=== PATIENT | female | born 1970 | race Caucasian/White ===

== ENCOUNTER → 2016-06-09 | Outpatient (CLI) | payer OTHER ==
[~2016-06-09] MED LIST: CONRAY-43 43% 50ML VIAL (Q9960) As Ordered ONE
--- NOTE | 2016-06-09 11:13 | REP ---
MR arthrography left shoulder: with pre and post intra-articular gadolinium enhanced saline injected imaging: History: Left shoulder pain. History of left shoulder surgery for bone fragment in 2010 after an injury. Comparison is made with a portable radiograph from [facility] dated June 18, 2009. Comparison MR imaging of the left shoulder performed with and without IV contrast is from April 16, 2009. Technique: The injection procedure is performed and dictated separately. Pre and post intra-articular gadolinium enhanced saline injected imaging is acquired. Imaging planes include axial, oblique coronal, oblique sagittal and ABER projection images. T1 T2-weighted scans are included with and without fat saturation. MRI findings: Pre injection MR imaging demonstrates normal alignment of the glenohumeral and acromioclavicular joints. There is a preinjection glenohumeral joint effusion. There is a intra labral and para labral cyst at the inferior anterior aspect of the labral cartilage. This cyst measures 9 mm in greatest diameter. There is some adjacent joint fluid. There is an associated anteroinferior labral cartilage tear. A small subacromial subdeltoid bursal effusion is seen on preinjection imaging as well. There is subcortical cyst formation in the humeral head. Post injection imaging shows good filling and enhancement of the left glenohumeral articulation. No loose body is seen. There is tendonitis tendinosis change in the supraspinatus tendon. There is no evidence of full-thickness cuff tear. There is some enhancement of the synovial surface portion of the distal supraspinatus tendon consistent with a partial thickness synovial surface distal supraspinatus tear. No superior labral tear is seen. The biceps tendons is intact. The para labral cyst does not enhance at the time of post injection imaging. Impression: 1. Subacromial subdeltoid bursal effusion. 2. Preinjection glenohumeral joint effusion. 3. Partial synovial surface distal supraspinatus cuff tear. 4. Para labral cyst associated with an anteroinferior labral cartilage tear. 5. No loose body seen. Signed by Simone Disla MD 06/09/2016 02:00 P
--- NOTE | 2016-06-10 14:51 | REP ---
Procedure: Left shoulder arthrogram The procedure was performed under the direct supervision of Dr. Disla. History: Left shoulder pain The benefits and risks including but not limited to pain, infection, bleeding and anaphylaxis were explained to the patient and informed consent was obtained. Technique: The left glenohumeral joint space was localized using fluoroscopic guidance. The skin was prepped and draped in a sterile fashion. 1% lidocaine was used as a local anesthetic. Using fluoroscopic guidance a 22 gauge spinal needle was inserted and advanced into the joint. 0.5 ml of Conray 43 was injected to verify placement. 11 ml of a solution containing 20 ml of sterile saline and 0.15 ml of ProHance was injected into the joint. The needle was removed and the patient was taken to MRI for postprocedural imaging. The the patient tolerated the procedure well and there were no immediate complications. 6 seconds of fluoro time was utilized for this procedure. Reviewed by BESSY Boone 06/09/2016 05:19 PSigned by Simone Disla MD 06/10/2016 02:44 P
== END ==
LOC: M RADPRO 06:59
PROVIDERS: ATTEND Nurse Practitioner Family
DX: S46.012A Strain of muscle(s) and tendon(s) of the rotator cuff of left shoulder, initial encounter (principal); M25.412 Effusion, left shoulder; S43.432A Superior glenoid labrum lesion of left shoulder, initial encounter; X58.XXXA Exposure to other specified factors, initial encounter; Y93.9 Activity, unspecified; Y92.9 Unspecified place or not applicable; Y99.8 Other external cause status; Z88.0 Allergy status to penicillin; Z88.5 Allergy status to narcotic agent
CPT/HCPCS: 23350; 73223; 77002; A9576; Q9960

== ENCOUNTER 2016-10-14 08:13 | Emergency (ER) | payer OTHER ==
[2016-10-14] MEDS ORDERED: NAPR250T45 PO (08:52)
[2016-10-14] MEDS ORDERED: BACT800T5 PO (09:40)
[2016-10-14 09:52] VITALS: BP 131/72
== END 2016-10-14 09:54 | disposition home or self-care (01) ==
LOC: M ED 08:13
DX: N61.0 Mastitis without abscess (principal); Z88.0 Allergy status to penicillin; Z88.5 Allergy status to narcotic agent

== ENCOUNTER → 2016-10-23 | Outpatient (CLI) | payer OTHER ==
[~2016-10-23] MED LIST changes: +BACT800T5 PO; -CONRAY-43 43% 50ML VIAL (Q9960) As Ordered ONE; +NAPR250T45 PO
--- NOTE | 2016-10-23 15:01 | REP ---
ULTRASOUND, LEFT BREAST: Real-time sonographic evaluation of the left breast is performed. There is a palpable abnormality. The abnormality is actually not within the left breast itself but is in the presternal soft tissues. At that location is an oval hypoechoic nodular area which measures approximately 2.7 x 1.0 x 2.7 cm. This has increased in size since the prior study of 04/02/2016 when it measures 8 x 7 x 6 mm. At that time, the abnormality was smooth and well defined. Current margins are irregular. IMPRESSION: ACR 3 probably benign. Irregular oval hypoechoic lesion at the site of the reported palpable abnormalities in the left presternal soft tissues. This hypoechoic area measures 2.7 x 1.0 x 2.7 cm and has significantly increased in size since the prior ultrasound of 04/02/2016. This may represent an enlargement of a subcutaneous fluid collection or complex cyst. Recommend either drainage/biopsy or followup ultrasound after appropriate antibiotic treatment. Signed by Coleman Mosqueda MD 10/23/2016 05:27 P
== END ==
LOC: M RAD 13:40
PROVIDERS: ATTEND Family Medicine
DX: N63 Unspecified lump in breast (principal)

== ENCOUNTER → 2017-09-29 | Outpatient (REF) ==
[2017-09-29 13:28] LABS: CRYSTALS, BODY FLUID NONE SEEN (NONE SEEN); SOURCE, BODY FLUID CRYSTALS LFT KNEE
[2017-09-29 13:43] LABS: RBC BODY FLUID 2 10^3/uL (<2); WBC BODY FLUID 216 /uL (0-10)
[2017-09-29 13:44] LABS: APPEARANCE, BODY FLUID HAZY (CLEAR); SOURCE, BODY FLUID LFT KNEE
== END ==
LOC: M LAB REF 12:40
DX: Z00.00 Encounter for general adult medical examination without abnormal findings (principal)

== ENCOUNTER → 2018-05-10 | Outpatient (CLI) | payer OTHER ==
[~2018-05-10] MED LIST changes: -NAPR250T45 PO; +NAPR250T82 PO
[2018-05-11 11:13] LABS: HEPATITIS A ANTIBODY IGM NEGATIVE (NEGATIVE); HEPATITIS B CORE ANTIBODY IGM NEGATIVE (NEGATIVE); HEPATITIS B SURFACE ANTIBODY POSITIVE (POSITIVE); HEPATITIS B SURFACE ANTIGEN NEGATIVE (NEGATIVE); HEPATITIS C VIRUS ABY INDEX 0.1 INDEX (<0.8)
== END ==
LOC: M WUC 11:45
PROVIDERS: ATTEND Physician Assistant
DX: Z11.3 Encounter for screening for infections with a predominantly sexual mode of transmission (principal)

== ENCOUNTER → 2019-02-14 | Outpatient (CLI) | payer OTHER ==
--- NOTE | 2019-02-14 12:49 | REPMRS ---
Patient History The patient states she has not had a clinical breast exam in over a year. Family history of melanoma at age 50 in father. Digital Mammo Screening Bilat: February 14, 2019 - Exam #: [id number] Bilateral CC and MLO view(s) were taken. Technologist: Denise Dodd, Technologist Prior study comparison: April 02, 2016, digital mammo diagnostic bilateral performed at [facility]. FINDINGS: There are scattered fibroglandular densities. There has been no change in the appearance of the mammogram from the prior studies. There is a mild amount of scattered fibroglandular density which is fairly symmetric. There is no interval development of dominant mass, architectural distortion, or grouped microcalcification suggestive of malignancy. 3-D tomosynthesis shows no additional findings. Assessment: BI-RADS/ACR category 1 mammogram. Negative Mammogram. Recommendation Routine screening mammogram of both breasts in 1 year (for women over age 40). This patient's Lifetime Breast Cancer Risk is estimated at 10.4 %. This mammogram was interpreted with the aid of an FDA-approved computer-aided dectection system. Electronically Signed By: Hubert Disla MD 02/14/19 [id number]
== END ==
LOC: M RAD 10:59
PROVIDERS: ATTEND Student in an Organized Health Care Education/Training Program
DX: Z12.31 Encounter for screening mammogram for malignant neoplasm of breast (principal)

== ENCOUNTER 2021-04-02 09:27 | Emergency (ER) | payer OTHER ==
[~2021-04-02] VITALS: Ht 172.7 cm; Wt 112.3 kg
[2021-04-02] MEDS ORDERED: PROAAER10 INH (09:39)
[2021-04-02] MEDS ORDERED: NAPR220C14 PO (09:39)
[2021-04-02] MEDS ORDERED: ASCO1TAB3 PO (09:39)
--- NOTE | 2021-04-02 10:23 | REP ---
INDICATION: sob cough COMPARISON: 06/02/2015 TECHNIQUE: Portable AP view of the chest FINDINGS: The mediastinum and cardiac silhouette are stable and within normal limits for portable technique. The lung gomez are clear without acute consolidation, effusion, or pneumothorax. Skeletal structures are intact. IMPRESSION: No acute cardiopulmonary process appreciated. <Electronically signed by Merritt Joseph > 04/02/21 [id number]
[2021-04-02 10:33] LABS: RSV AMPLIFICATION NEGATIVE (NEGATIVE)
[2021-04-02] MEDS ORDERED: ALBUTEROL 90 MCG/ACT 8GM HFA INHALER INH ONE (11:30)
[2021-04-02 12:12] LABS: BASO % 0.3 % (0.0-1.0); EOS # 0.1 10^3/uL (0.0-0.5); EOS % 2.2 % (0.0-3.0); HEMATOCRIT 38.2 % (36.0-47.0); HEMOGLOBIN 12.7 g/dl (12.0-15.5); LYMPH # 1.1 10^3/uL (1.5-5.0); LYMPH % 19.1 % (24.0-44.0); MEAN CORPUSCULAR HEMOGLOBIN 29.2 pg (27.0-33.0); MEAN CORPUSCULAR HGB CONC 33.2 g/dl (32.0-36.5); MEAN CORPUSCULAR VOLUME 87.8 fl (80.0-96.0); MONO # 0.4 10^3/uL (0.0-0.8); MONO % 6.9 % (2.0-8.0); NEUTROPHILS # 4.2 10^3/uL (1.5-8.5); NEUTROPHILS % 71.3 % (36.0-66.0); PLATELET COUNT, AUTOMATED 218 10^3/uL (150-450); RED BLOOD COUNT 4.35 10^6/uL (4.00-5.40); WHITE BLOOD COUNT 5.9 10^3/uL (4.0-10.0)
[2021-04-02 12:40] LABS: CK-MB VALUE MASS 1.3 NG/ML (<3.6); MB/CK RELATIVE INDEX 1.69 (< OR =4)
[2021-04-02 12:47] LABS: ALBUMIN 3.9 GM/DL (3.2-5.2); ALT/SGPT 26 U/L (12-78); BILIRUBIN,TOTAL 0.6 MG/DL (0.2-1.0); BLOOD UREA NITROGEN 10 MG/DL (7-18); CALCIUM LEVEL 9.1 MG/DL (8.5-10.1); CARBON DIOXIDE LEVEL 27 MEQ/L (21-32); CHLORIDE LEVEL 106 MEQ/L (98-107); CREATININE FOR GFR 0.73 MG/DL (0.55-1.30); FREE T4 0.97 NG/DL (0.76-1.46); GLOMERULAR FILTRATION RATE > 60.0 (>51); GLUCOSE, FASTING 109 MG/DL (70-100); POTASSIUM SERUM 4.4 MEQ/L (3.5-5.1); SODIUM LEVEL 139 MEQ/L (136-145); TOTAL PROTEIN 7.4 GM/DL (6.4-8.2)
[2021-04-02] MEDS ORDERED: ISOVUE-370 76% 100ML VIAL As Ordered ONE (12:51)
--- NOTE | 2021-04-02 13:21 | REP ---
INDICATION: chest pain, sob since covid in Jan 2021 COMPARISON: None. TECHNIQUE: CT angiography of the chest after the intravenous administration of 75 cc Isovue 370 attention pulmonary arteries. FINDINGS: There is excellent visualization of the pulmonary arterial vasculature. No focal filling defects are present that would be considered consistent with acute pulmonary emboli. Limited evaluation of the thoracic aorta shows no gross abnormality. There is no mediastinal or hilar adenopathy. There are no pleural or pericardial effusions. The imaged upper abdomen and imaged osseous structures are within normal limits. Evaluation of the lung gomez shows no abnormal nodules, masses, or opacities. IMPRESSION: There is no evidence of acute disease. <Electronically signed by Anson Paez > 04/02/21 [id number]
[2021-04-02 13:35] VITALS: BP 133/69
--- NOTE | 2021-04-02 16:17 | ECGEPIP ---
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
== END 2021-04-02 14:24 | disposition home or self-care (01) ==
LOC: M ED 09:27
DX: R05.9 Cough, unspecified (principal); U09.9 Post COVID-19 condition, unspecified; R07.89 Other chest pain; Z88.0 Allergy status to penicillin; Z88.5 Allergy status to narcotic agent
CPT/HCPCS: 71045; 71275; 80053; 82553; 84439; 84443; 84484; 85025; 85379; 87631; 93005; 94640; 99284; Q9967

== ENCOUNTER 2023-07-20 11:59 | Observation (INO) | payer OTHER ==
[~2023-07-20] VITALS: Ht 172.7 cm; Wt 98.4 kg
[~2023-07-20 11:59] MED LIST changes: +ASCO1TAB3 PO; +DULO30CA47 PO; +MELO7.5T35 PO; +METF10004 PO; +METH-1164 PO; +NAPR220C14 PO; +PROAAER10 INH; +THERTAB52 PO; +UNRESOLVED CLARIFICATION ENTRY XX SCH; +VITA100093 PO
[2023-07-20] MEDS ORDERED: fentaNYL 250 MCG/5 ML INJECTION As Ordered ONE (12:23)
[2023-07-20] MEDS ORDERED: LIDOCAINE 2% 100MG/5ML SDV (FOR ANES.) As Ordered ONE (12:23)
[2023-07-20] MEDS ORDERED: SUGAMMADEX SODIUM 500 MG/5 ML VIAL (BRIDION) As Ordered ONE (12:23)
[2023-07-20] MEDS ORDERED: propofoL 200 MG/20 ML VIAL As Ordered ONE (12:23)
[2023-07-20] MEDS ORDERED: ROCURONIUM BROMIDE 50MG/5ML VIAL As Ordered ONE (12:23)
[2023-07-20] MEDS ORDERED: ONDANSETRON 4MG 2ML VIAL As Ordered ONE (12:23)
[2023-07-20] MEDS ORDERED: MIDAZOLAM INJ 2MG/2ML VIAL As Ordered ONE (12:24)
[2023-07-20] MEDS ORDERED: dexmedeTOMIDine (4MCG/ML)200MCG/50ML BTL (PRECEDEX) As Ordered ONE (12:38)
[2023-07-20] MEDS: SCOPOLAMINE 1MG TRANSDERMAL PATCH TOP ONE (12:53)
[2023-07-20] MEDS: CLINDAMYCIN 900 MG in IV 1 EA IV ONE (14:41)
[2023-07-20] MEDS ORDERED: ACETAMINOPHEN 1000MG 100ML IV BAG As Ordered ONE (14:44)
[2023-07-20] MEDS: HEPARIN SOD (PORCINE) 5000UNITS/ML 1ML VIAL/SYRINGE SQ ONE (14:48)
[2023-07-20] MEDS ORDERED: HYDROmorphone HCL 2MG/ML 1ML VIAL As Ordered ONE (14:53)
[2023-07-20] MEDS: GENTAMICIN SULF 80MG/2ML VIAL As Ordered ONE (15:23)
[2023-07-20] MEDS: LIDOCAINE 1% MDV 20ML VIAL As Ordered ONE (15:23)
[2023-07-20] MEDS: EPINEPHrine INJ 1 MG/ML 1ML AMP As Ordered ONE (15:30)
[2023-07-20] MEDS ORDERED: fentaNYL 100 MCG/2 ML INJECTION IV PRN (18:25)
[2023-07-20] MEDS ORDERED: METOCLOPRAMIDE INJ 10MG/2ML VIAL IV PRN (18:25)
[2023-07-20] MEDS ORDERED: ONDANSETRON 4MG 2ML VIAL IV PRN ×2 (18:25→19:05)
[2023-07-20] MEDS ORDERED: NORCO, ANEXSIA 5/325MG TABLET (HYDROcodone/ACETAMINOPHEN) PO PRN (18:25)
[2023-07-20] MEDS: HYDROMORPHONE HCL 0.5 MG/ 0.5 ML SYRINGE IV PRN (18:45)
[2023-07-20] MEDS: oxyCODONE 5MG TAB PO PRN (18:58)
[2023-07-20] MEDS: LR 1,000 ML IV SCH ×3 (20:11→22:32)
[2023-07-20 20:15] VITALS: BP 134/86; TEMP 97.6; O2SAT 98
[2023-07-20 20:45] VITALS: BP 120/74; TEMP 97; O2SAT 93
[2023-07-20 21:45] VITALS: BP 132/82; TEMP 97; O2SAT 94
[2023-07-20] MEDS: PERCOCET 5MG/325MG TAB PO PRN (22:31)
[2023-07-21] VITALS (7 sets, daily range): BP systolic 97–108; BP diastolic 51–70; TEMP 97–97.7; O2SAT 94–98
[2023-07-21] MEDS ORDERED: fentaNYL 100 MCG/2 ML INJECTION As Ordered ONE (00:42)
[2023-07-21] MEDS ORDERED: PHENYLephrine 500MCG 5ML (100MCG/ML) SYRINGE As Ordered ONE (01:26)
[2023-07-21] MEDS ORDERED: oxyCODONE 5MG TAB PO PRN (01:35)
[2023-07-21] MEDS ORDERED: fentaNYL 100 MCG/2 ML INJECTION IV PRN (01:35)
[2023-07-21] MEDS ORDERED: ONDANSETRON 4MG 2ML VIAL IV PRN (01:35)
[2023-07-21] MEDS ORDERED: ePHEDrine SULFATE 25 MG/5 ML(5MG/ML) SYRINGE As Ordered ONE (01:47)
[2023-07-21 03:43] LABS: HEMATOCRIT 29.2 % (36.0-47.0); HEMOGLOBIN 9.7 g/dl (12.0-15.5); MEAN CORPUSCULAR HEMOGLOBIN 29.7 pg (27.0-33.0); MEAN CORPUSCULAR HGB CONC 33.2 g/dl (32.0-36.5); MEAN CORPUSCULAR VOLUME 89.3 fl (80.0-96.0); PLATELET COUNT, AUTOMATED 224 10^3/uL (150-450); RED BLOOD COUNT 3.27 10^6/uL (4.00-5.40); WHITE BLOOD COUNT 15.2 10^3/uL (4.0-10.0)
[2023-07-21] MEDS: metFORMIN (GLUCOPHAGE) 1000MG TABLET PO SCH (08:25)
[2023-07-21] MEDS: traMADol 50 MG TAB PO PRN (08:26)
[2023-07-21] MEDS: ACETAMINOPHEN TAB 650MG DOSE (2X325MG) PO PRN (08:26)
[2023-07-21 11:35] LABS: HEMATOCRIT 26.4 % (36.0-47.0); HEMOGLOBIN 8.8 g/dl (12.0-15.5); MEAN CORPUSCULAR HEMOGLOBIN 29.8 pg (27.0-33.0); MEAN CORPUSCULAR HGB CONC 33.3 g/dl (32.0-36.5); MEAN CORPUSCULAR VOLUME 89.5 fl (80.0-96.0); PLATELET COUNT, AUTOMATED 253 10^3/uL (150-450); RED BLOOD COUNT 2.95 10^6/uL (4.00-5.40)
[2023-07-21 15:18] LABS: HEMATOCRIT 24.9 % (36.0-47.0); HEMOGLOBIN 8.4 g/dl (12.0-15.5); MEAN CORPUSCULAR HEMOGLOBIN 30.1 pg (27.0-33.0); MEAN CORPUSCULAR HGB CONC 33.7 g/dl (32.0-36.5); MEAN CORPUSCULAR VOLUME 89.2 fl (80.0-96.0); PLATELET COUNT, AUTOMATED 233 10^3/uL (150-450); RED BLOOD COUNT 2.79 10^6/uL (4.00-5.40); WHITE BLOOD COUNT 12.2 10^3/uL (4.0-10.0)
[2023-07-21] MEDS ORDERED: IRON65TA2 PO (16:07)
[2023-07-21] MEDS ORDERED: TRAM50TA2 PO (16:07)
== END 2023-07-21 16:45 | disposition home or self-care (01) ==
LOC: M SDC 11:59 → M ED INP 12:00 → M MS5PR 19:45
PROVIDERS: ADMIT Plastic Surgery Surgery of the Hand; ATTEND Plastic Surgery Surgery of the Hand
DX: N62 Hypertrophy of breast (principal); L76.82 Other postprocedural complications of skin and subcutaneous tissue; Z79.899 Other long term (current) drug therapy; Z88.0 Allergy status to penicillin; Z88.5 Allergy status to narcotic agent
CPT/HCPCS: 19020; 19318; 36415; 85027; 88300; 88302; 88305; C9290; J0131; J0171; J0665; J0737; J1100; J1170; J1580; J2250; J2371; J2405; J3010

== ENCOUNTER 2023-08-09 08:40 | Inpatient (IN) | payer OTHER ==
[~2023-08-09] VITALS: Ht 172.7 cm; Wt 96.2 kg
[~2023-08-09 08:40] MED LIST changes: +IRON65TA2 PO; +TRAM50TA2 PO; -UNRESOLVED CLARIFICATION ENTRY XX SCH
[2023-08-09] MEDS ORDERED: MUPI2OI (08:50)
[2023-08-09] MEDS ORDERED: VANCOMYCIN HCL 2,000 MG in D5W 500 ML IV ONE (09:10)
[2023-08-09] MEDS: NS 1,000 ML IV ONE (09:23)
[2023-08-09] MEDS: ACETAMINOPHEN 325 MG TAB PO ONE (09:24)
[2023-08-09 09:33] LABS: BASO % 0.4 % (0.0-1.0); EOS % 0.4 % (0.0-3.0); HEMOGLOBIN 9.4 g/dl (12.0-15.5); LYMPH # 0.6 10^3/uL (1.5-5.0); LYMPH % 7.8 % (24.0-44.0); MEAN CORPUSCULAR HEMOGLOBIN 29.2 pg (27.0-33.0); MEAN CORPUSCULAR HGB CONC 32.4 g/dl (32.0-36.5); MEAN CORPUSCULAR VOLUME 90.1 fl (80.0-96.0); MONO # 0.6 10^3/uL (0.0-0.8); MONO % 8.8 % (2.0-8.0); NEUTROPHILS % 82.3 % (36.0-66.0); PLATELET COUNT, AUTOMATED 300 10^3/uL (150-450); RED BLOOD COUNT 3.22 10^6/uL (4.00-5.40); WHITE BLOOD COUNT 7.3 10^3/uL (4.0-10.0)
[2023-08-09 09:47] LABS: INR 1.26; PARTIAL THROMBOPLASTIN TIME 32.3 SECONDS (24.8-34.2); PROTHROMBIN TIME 15.4 SECONDS (12.5-14.5)
[2023-08-09] MEDS: VANCOMYCIN HCL 1,000 MG, VIAL MATE ADAPTER 1 EACH in D5W 250 ML IV ONE ×2 (09:54→11:00)
[2023-08-09 09:58] LABS: ALBUMIN 3.2 G/DL (3.2-5.2); ALKALINE PHOSPHATASE 167 U/L (46-116); ALT/SGPT 38 U/L (7.0-40); AMYLASE 32 U/L (30-118); AST/SGOT 28 U/L (<34); BILIRUBIN,DIRECT 0.2 MG/DL (<0.4); BILIRUBIN,TOTAL 0.5 MG/DL (0.3-1.2); BLOOD UREA NITROGEN 14 MG/DL (9-23); CALCIUM LEVEL 8.4 MG/DL (8.5-10.1); CARBON DIOXIDE LEVEL 28 MMOL/L (20-31); CHLORIDE LEVEL 105 MMOL/L (98-107); GLOMERULAR FILTRATION RATE > 60.0 (>51); GLUCOSE, FASTING 125 MG/DL (60-100); SODIUM LEVEL 141 MMOL/L (136-145); TOTAL PROTEIN 6.5 G/DL (5.7-8.2)
[2023-08-09 10:05] LABS: PROCALCITONIN 0.11 ng/ml
[2023-08-09] MEDS ORDERED: FERR1TAB8 PO (10:13)
[2023-08-09] MEDS ORDERED: SOLI10TA PO (10:15)
[2023-08-09 10:19] LABS: HCG, SERUM QUALITATIVE NEGATIVE (NEGATIVE)
[2023-08-09] MEDS ORDERED: HOME MED LIST COMPLETE! XX SCH (10:20)
[2023-08-09] MEDS ORDERED: VANCOMYCIN HCL 1,000 MG, VIAL MATE ADAPTER 1 EACH in D5W 250 ML IV SCH (11:35)
[2023-08-09] MEDS ORDERED: KETOROLAC 30 MG/ML 1ML VIAL IV PRN (11:35)
[2023-08-09] MEDS ORDERED: MOM 30ML SUSPENSION UDC PO PRN (11:35)
[2023-08-09 11:51] LABS: APPEARANCE, URINE HAZY (CLEAR); BACTERIA, URINE AUTO NEGATIVE (NEGATIVE); BILIRUBIN, URINE AUTO NEGATIVE (NEGATIVE); BLOOD, URINE BLOOD NEGATIVE (NEGATIVE); COLOR, URINE YELLOW (YELLOW); GLUCOSE, URINE (UA) AUTO NEGATIVE (NEGATIVE); KETONE, URINE AUTO NEGATIVE (NEGATIVE); LEUKOCYTE ESTERASE, URINE AUTO NEGATIVE (NEGATIVE); MUCUS, URINE SMALL (NEGATIVE); NITRITE, URINE AUTO NEGATIVE (NEGATIVE); PROTEIN, URINE AUTO NEGATIVE (NEGATIVE); RBC, URINE AUTO 1 /HPF (0-3); SPECIFIC GRAVITY URINE AUTO 1.013 (1.002-1.035); SQUAMOUS EPITHELIAL CELL UR AU 3 /HPF (0-6); UROBILINOGEN, URINE AUTO 0.2 mg/dL (0.0-2.0); WBC, URINE AUTO 2 /HPF (0-3)
[2023-08-09] MEDS: VITAMIN D 1,000 INTERNATIONAL UNITS TABLET PO SCH (14:00)
[2023-08-09] MEDS: DOCUSATE SODIUM 100MG CAPSULE PO SCH (14:00)
[2023-08-09] MEDS: FERROUS SULFATE 325MG TAB PO SCH (14:00)
[2023-08-09] MEDS: KETOROLAC 30 MG/ML 1ML VIAL IV PRN (14:03)
[2023-08-09] MEDS: ACETAMINOPHEN 500 MG TAB PO SCH (14:03)
[2023-08-09 14:55] VITALS: BP 117/66; TEMP 98.4
[2023-08-09] MEDS: HEPARIN SOD (PORCINE) 5000UNITS/ML 1ML VIAL/SYRINGE SC SCH (16:43)
[2023-08-09] MEDS: SOLIFENACIN 5 MG TAB PO SCH (16:43)
[2023-08-09] MEDS: VANCOMYCIN HCL 750 MG, VIAL MATE ADAPTER 1 EACH in D5W 250 ML IV SCH (19:52)
[2023-08-09 20:12] VITALS: BP 117/65; TEMP 98.2; O2SAT 100
[2023-08-09] MEDS: VANCOMYCIN HCL 500 MG in D5W MINI-BAG PLUS 100 ML IV SCH (21:00)
[2023-08-10] VITALS (15 sets, daily range): BP systolic 111–142; BP diastolic 68–89; TEMP 97.3–98.1; O2SAT 92–98
[2023-08-10 07:20] LABS: HEMATOCRIT 27.1 % (36.0-47.0); HEMOGLOBIN 8.6 g/dl (12.0-15.5); MEAN CORPUSCULAR HGB CONC 31.7 g/dl (32.0-36.5); MEAN CORPUSCULAR VOLUME 91.2 fl (80.0-96.0); PLATELET COUNT, AUTOMATED 296 10^3/uL (150-450); RED BLOOD COUNT 2.97 10^6/uL (4.00-5.40); WHITE BLOOD COUNT 5.7 10^3/uL (4.0-10.0)
[2023-08-10 08:04] LABS: BLOOD UREA NITROGEN 15 MG/DL (9-23); CALCIUM LEVEL 8.9 MG/DL (8.5-10.1); CARBON DIOXIDE LEVEL 28 MMOL/L (20-31); CHLORIDE LEVEL 104 MMOL/L (98-107); CREATININE FOR GFR 0.76 MG/DL (0.55-1.30); GLOMERULAR FILTRATION RATE > 60.0 (>51); GLUCOSE, FASTING 114 MG/DL (60-100); POTASSIUM SERUM 3.8 MMOL/L (3.5-5.1); SODIUM LEVEL 140 MMOL/L (136-145)
[2023-08-10] MEDS ORDERED: propofoL 200 MG/20 ML VIAL As Ordered ONE (08:57)
[2023-08-10] MEDS ORDERED: LIDOCAINE 2% 100MG/5ML SDV (FOR ANES.) As Ordered ONE (08:57)
[2023-08-10] MEDS ORDERED: fentaNYL 100 MCG/2 ML INJECTION As Ordered ONE (08:57)
[2023-08-10] MEDS ORDERED: KETAMINE HCL 200MG/20ML VIAL As Ordered ONE (08:57)
[2023-08-10] MEDS ORDERED: ONDANSETRON 4MG 2ML VIAL As Ordered ONE (08:57)
[2023-08-10] MEDS ORDERED: MIDAZOLAM INJ 2MG/2ML VIAL As Ordered ONE (08:58)
[2023-08-10] MEDS: SCOPOLAMINE 1MG TRANSDERMAL PATCH TOP ONE (09:11)
[2023-08-10] MEDS: GENTAMICIN SULF 80MG/2ML VIAL As Ordered ONE (09:45)
[2023-08-10] MEDS ORDERED: ACETAMINOPHEN 1000MG 100ML IV BAG As Ordered ONE (09:55)
[2023-08-10] MEDS ORDERED: KETOROLAC 60MG 2ML VIAL As Ordered ONE (10:25)
[2023-08-10] MEDS: ONDANSETRON 4MG 2ML VIAL IV PRN (11:14)
[2023-08-10] MEDS: oxyCODONE 5MG TAB PO PRN (11:14)
[2023-08-10] MEDS: fentaNYL 100 MCG/2 ML INJECTION IV PRN (11:15)
[2023-08-10] MEDS: VANCOMYCIN HCL 1,000 MG, VIAL MATE ADAPTER 1 EACH in D5W 250 ML IV SCH (12:48)
[2023-08-11 02:00] VITALS: BP 133/76; TEMP 98.1; O2SAT 96
[2023-08-11 06:00] VITALS: BP 130/78; TEMP 97.9; O2SAT 93
[2023-08-11 08:10] LABS: BASO % 0.3 % (0.0-1.0); EOS % 0.6 % (0.0-3.0); HEMATOCRIT 30.5 % (36.0-47.0); HEMOGLOBIN 9.8 g/dl (12.0-15.5); LYMPH # 1.9 10^3/uL (1.5-5.0); LYMPH % 26.2 % (24.0-44.0); MEAN CORPUSCULAR HEMOGLOBIN 28.4 pg (27.0-33.0); MEAN CORPUSCULAR HGB CONC 32.1 g/dl (32.0-36.5); MEAN CORPUSCULAR VOLUME 88.4 fl (80.0-96.0); MONO # 0.6 10^3/uL (0.0-0.8); MONO % 8.1 % (2.0-8.0); NEUTROPHILS # 4.6 10^3/uL (1.5-8.5); NEUTROPHILS % 64.2 % (36.0-66.0); PLATELET COUNT, AUTOMATED 329 10^3/uL (150-450); RED BLOOD COUNT 3.45 10^6/uL (4.00-5.40); WHITE BLOOD COUNT 7.1 10^3/uL (4.0-10.0)
[2023-08-11 08:35] LABS: BLOOD UREA NITROGEN 12 MG/DL (9-23); CALCIUM LEVEL 8.6 MG/DL (8.5-10.1); CARBON DIOXIDE LEVEL 29 MMOL/L (20-31); CHLORIDE LEVEL 107 MMOL/L (98-107); CREATININE FOR GFR 0.74 MG/DL (0.55-1.30); GLOMERULAR FILTRATION RATE > 60.0 (>51); GLUCOSE, FASTING 99 MG/DL (60-100); POTASSIUM SERUM 4.1 MMOL/L (3.5-5.1); SODIUM LEVEL 142 MMOL/L (136-145)
[2023-08-11 08:41] LABS: PROCALCITONIN 0.07 ng/ml
[2023-08-11] MEDS ORDERED: OXYC1TAB23 PO (09:20)
[2023-08-11] MEDS ORDERED: BACI1CAP PO (09:20)
[2023-08-11] MEDS ORDERED: BACT800T5 PO (09:20)
[2023-08-11 09:53] VITALS: BP 109/65; TEMP 98.1; O2SAT 95
== END 2023-08-11 12:35 | disposition home or self-care (01) | DRG 711 ==
LOC: M ED 08:40 → M ED INP 08:41 → OBSVTOIN 08:41 → ENRESERV 14:02 → M MS5PR 14:55
PROVIDERS: ADMIT Student in an Organized Health Care Education/Training Program; ATTEND General Practice
PROC: 0HBT0ZZ Excision of Right Breast, Open Approach (ICD-10-PCS; 2023-08-10)
PROC: 30233N1 Transfusion of Nonautologous Red Blood Cells into Peripheral Vein, Percutaneous Approach (ICD-10-PCS; principal; 2023-08-10 09:00)
DX: T81.49XA Infection following a procedure, other surgical site, initial encounter (principal); B95.61 Methicillin susceptible Staphylococcus aureus infection as the cause of diseases classified elsewhere; L76.31 Postprocedural hematoma of skin and subcutaneous tissue following a dermatologic procedure; D62 Acute posthemorrhagic anemia; E66.9 Obesity, unspecified; M19.90 Unspecified osteoarthritis, unspecified site; Z68.32 Body mass index [BMI] 32.0-32.9, adult; Z88.0 Allergy status to penicillin; Z88.5 Allergy status to narcotic agent; Z79.899 Other long term (current) drug therapy; E88.819 Insulin resistance, unspecified; N32.81 Overactive bladder; N61.0 Mastitis without abscess; E55.9 Vitamin D deficiency, unspecified; N64.1 Fat necrosis of breast

== ENCOUNTER → 2024-11-10 | Outpatient (CLI) | payer OTHER ==
[~2024-11-10] MED LIST changes: +BACI1CAP PO; +FERR1TAB8 PO; +MUPI2OI; +OXYC1TAB23 PO; +SOLI10TA PO
[2024-11-15 22:32] LABS: LYME TOTAL ANTIBODY CIA 4.14 Index (<=0.90)
[2024-11-17 01:08] LABS: LYME AB IGG BY CIA 1.42 Index (<=0.90); LYME AB IGM BY CIA 4.73 Index (<=0.90)
== END ==
LOC: M WUC 11:11
PROVIDERS: ATTEND Nurse Practitioner Family
DX: L03.115 Cellulitis of right lower limb (principal); R21 Rash and other nonspecific skin eruption